=== PATIENT | male | born 1985 | race American Indian/Alaskan Native ===

== ENCOUNTER 2017-12-22 18:11 | Emergency (ER) | payer MEDICAID ==
[2017-12-23] MEDS ORDERED: PERCOCET 5/325 PO ONE (00:42)
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
[2017-12-23 01:28] VITALS: BP 144/90
== END 2017-12-23 01:28 | disposition home or self-care (01) ==
LOC: ED 18:11
DX: M25.552 Pain in left hip (principal); Z53.21 Procedure and treatment not carried out due to patient leaving prior to being seen by health care provider
CPT/HCPCS: 99282